=== PATIENT | female | born 1965 | race Caucasian/White ===

== ENCOUNTER 2017-01-01 12:41 | Emergency (ER) | payer BC, OTHER ==
--- NOTE | 2017-01-01 12:51 | UC ---
Skin Complaint HPI - HPI Summary HPI Summary: 51 y/o female PMHX Hypothyrodism presents to the urgent care c/o rash in her RT forearm that scabs overs and heals again a couple of weeks later with a lot of itchiness. It started as an insect bite a few months ago. She has been applying triple antibiotic, but it returns. Pt denies fever, SOB, chest pain, N /V/D. Pt has not other complains - History of Current Complaint Time Seen by Provider: 01/01/17 12:50 Stated Complaint: LEFT ARM SKIN COMPLAINT Hx Obtained From: Patient Hx Last Menstrual Period: 12/09/12 Onset/Duration: Gradual Onset, Lasting Weeks, Still Present Skin Exposure Onset/Duration: Worse Since: - couple of months ago Onset Severity: Moderate Current Severity: Mild Pain Intensity: 0 Pain Scale Used: 0-10 Numeric Location: Discrete - LF forarm Character: Pruritus Aggravating: Touch Alleviating: OTC Meds Associated Signs & Symptoms: Positive: Negative Related History: Insect Bite/Sting - Allergy/Home Medications Allergies/Adverse Reactions: Allergies Allergy/AdvReac Type Severity Reaction Status Date / Time No Known Allergies Allergy Verified 01/01/17 12:46 Review of Systems Constitutional: Negative Skin: Rash - Left forearm ENT: Negative Respiratory: Negative Cardiovascular: Negative Gastrointestinal: Negative Genitourinary: Negative Motor: Negative Neurovascular: Negative Musculoskeletal: Negative Neurological: Negative Psychological: Negative All Other Systems Reviewed And Are Negative: Yes PMH/Surg Hx/FS Hx/Imm Hx Previously Healthy: Yes Endocrine History: Hypothyroidism Other GI/ History: Fibroids - Surgical History Surgical History: Yes Surgery Procedure, Year, and Place: see above - Family History Known Family History: Positive: Hypertension, Diabetes - Social History Occupation: Employed Full-time Lives: With Family Substance Use Type: None Physical Exam Triage Information Reviewed: Yes Appearance: Well-Appearing, No Pain Distress, Well-Nourished, Obese Vital Signs Reviewed: Yes Eye Exam: Normal Eyes: Positive: Conjunctiva Clear - PERRLA, EOMI, fundi grossly normal ENT Exam: Normal ENT: Positive: Normal ENT inspection, Hearing grossly normal, Pharynx normal, TMs normal Dental Exam: Normal Neck exam: Normal Neck: Positive: Supple, Nontender, No Lymphadenopathy Respiratory Exam: Normal Respiratory: Positive: Chest non-tender, Lungs clear, Normal breath sounds Cardiovascular Exam: Normal Cardiovascular: Positive: RRR, No Murmur, Pulses Normal Abdominal Exam: Normal Abdomen Description: Positive: Nontender, No Organomegaly, Soft. Negative: CVA Tenderness (R), CVA Tenderness (L) Bowel Sounds: Positive: Present Musculoskeletal Exam: Normal Musculoskeletal: Positive: Strength Intact, ROM Intact, No Edema Neurological Exam: Normal Psychological Exam: Normal Skin: Positive: rashes - LF forearm anterior aspect w/ a discrete erythematous maculopapular eruption, non tender on palpation, no swelling or signs of infection observed, mild scoriation noted Course/Dx - Course Course Of Treatment: 51 y/o female PMHX Hypothyrodism presents to the urgent care c/o rash in her RT forearm that scabs overs and heals again a couple of weeks later with a lot of itchiness. It started as an insect bite a few months ago. She has been applying triple antibiotic, but it returns. Pt denies fever , SOB, chest pain, N/V/D. Hx obtained. Meds reviewed, Pt rash will be tx as dermatitis. Pt Rx Triamcinolone topical ointment to alleviate symptoms. If not improvement advised to f/u with her PCP for further treatment. - Differential Diagnoses - Skin Complaint Differential Diagnoses: Cellulitis, Contact Dermatitis, Eczema, Local Allergic Reaction, Tick Born Illness, Urticaria - Diagnoses Provider Diagnoses: 1- unspecified rash of the left arm Discharge - Discharge Plan Condition: Stable Disposition: HOME Prescriptions: Triamcinolone 0.1% OINT(NF) [Kenalog 0.1% OINT(NF)] 1 applic .SEE ORDER BID #1 tube Patient Education Materials: Acute Rash (ED) Referrals: Brenna Arita MD [Medical Doctor] - If Needed Additional Instructions: please apply topical cream as directed. If symptoms do not improve please f/u with your PCP for further evaluation and treatment.
[2017-01-01 12:52] VITALS: BP 133/79
== END 2017-01-01 13:43 | disposition home or self-care (01) ==
LOC: UCCORT 12:41
DX: R21 Rash and other nonspecific skin eruption (principal); E03.9 Hypothyroidism, unspecified; E66.9 Obesity, unspecified
CPT/HCPCS: 99212; G0463

== ENCOUNTER 2017-05-17 13:42 | Emergency (ER) | payer OTHER ==
--- NOTE | 2017-05-17 14:54 | UC ---
Throat Pain/Nasal Sami HPI - HPI Summary HPI Summary: 51 year old female presents with sinus - History of Current Complaint Chief Complaint: UCRespiratory Stated Complaint: MCCLELLAN/ST Time Seen by Provider: 05/17/17 14:54 Hx Obtained From: Patient Hx Last Menstrual Period: 12/09/12 Onset/Duration: Sudden Onset, Lasting Days Severity: Moderate Pain Scale Used: 0-10 Numeric - 5 - Allergies/Home Medications Allergies/Adverse Reactions: Allergies Allergy/AdvReac Type Severity Reaction Status Date / Time No Known Allergies Allergy Verified 05/17/17 14:57 PMH/Surg Hx/FS Hx/Imm Hx Previously Healthy: Yes - Surgical History Surgical History: Yes Surgery Procedure, Year, and Place: see above - Family History Known Family History: Positive: Hypertension, Diabetes - Social History Alcohol Use: None Substance Use Type: None Smoking Status (MU): Never Smoked Tobacco Review of Systems Constitutional: Negative Skin: Negative Eyes: Negative ENT: Sore Throat, Nasal Discharge, Sinus Congestion, Sinus Pain/Tenderness Respiratory: Cough Cardiovascular: Negative Gastrointestinal: Negative Genitourinary: Negative Motor: Negative Neurovascular: Negative Musculoskeletal: Negative Neurological: Negative Psychological: Negative All Other Systems Reviewed And Are Negative: Yes Physical Exam Triage Information Reviewed: Yes Vital Signs Reviewed: Yes Eye Exam: Normal ENT: Positive: Pharyngeal erythema, Nasal congestion, Nasal drainage, Sinus tenderness Dental Exam: Normal Neck exam: Normal Neck: Positive: 1 Respiratory: Positive: Rhonchi, Wheezing Cardiovascular Exam: Normal Abdominal Exam: Normal Musculoskeletal Exam: Normal Neurological Exam: Normal Psychological Exam: Normal Skin Exam: Normal Throat Pain/Nasal Course/Dx - Differential Dx/Diagnosis Provider Diagnoses: sinusitis. cough Discharge - Discharge Plan Condition: Stable Disposition: HOME Prescriptions: Amoxicillin/Clavulanate TAB* [Augmentin TAB 875*] 875 mg PO BID #20 tab Guaifenesin-Codeine [Cheratussin AC] 1 teasp PO Q8H PRN #120 ml MDD 15 ml PRN Reason: Cough LoraTADine TAB(NF) [Claritin 10 MG TAB(NF)] 10 mg PO DAILY #30 tab Magic M W2 Wyatt/Maal/Nyst/Lido* 5 ml SWISH SPIT QID PRN #120 ml PRN Reason: Sore Throat Patient Education Materials: Sinusitis (ED) Referrals: Mina Allen NP [Primary Care Provider] -
[2017-05-17 14:58] VITALS: BP 134/67
== END 2017-05-17 16:29 | disposition home or self-care (01) ==
LOC: UCCORT 13:42
DX: J32.9 Chronic sinusitis, unspecified (principal); R05 Cough
CPT/HCPCS: 87651; 99212; G0463

== ENCOUNTER 2017-11-15 17:30 | Emergency (ER) | payer BC, OTHER ==
[2017-11-15 17:55] VITALS: BP 132/68
--- NOTE | 2017-11-15 18:33 | UC ---
Ear Complaint HPI - HPI Summary HPI Summary: Pt presents with c/o pain and swelling to left outer upper ear X 1 days. Pt states she feels firm tender area inside upper inner pinna - History of Current Complaint Hx Obtained From: Patient Hx Last Menstrual Period: 11/12/17 ?: No Onset/Duration: Sudden Onset Severity Initially: Moderate Severity Currently: Moderate Pain Intensity: 8 Pain Scale Used: 0-10 Numeric Aggravating Factors: Other - tough Alleviating Factors: Nothing Associated Signs/Symptoms: Positive: Swelling @ - left upper innder pinna <Marietta Mosley NP - Last Filed: 11/15/17 18:27> <Ebenezer Martin - Last Filed: 11/15/17 20:41> - History of Current Complaint Chief Complaint: UCEar Stated Complaint: LEFT EAR PAIN Time Seen by Provider: 11/15/17 18:07 - Allergies/Home Medications Allergies/Adverse Reactions: Allergies Allergy/AdvReac Type Severity Reaction Status Date / Time No Known Allergies Allergy Verified 11/15/17 17:46 Home Medications: Home Medications DULoxetine DR CAP* [Cymbalta CAP*] 90 mg PO DAILY 11/15/17 [History Confirmed ] PMH/Surg Hx/FS Hx/Imm Hx Previously Healthy: Yes - Surgical History Surgical History: Yes Surgery Procedure, Year, and Place: - Family History Known Family History: Positive: Hypertension, Diabetes - Social History Occupation: Employed Full-time Lives: With Family Alcohol Use: None Substance Use Type: None Smoking Status (MU): Never Smoked Tobacco Have You Smoked in the Last Year: No - Immunization History Most Recent Influenza Vaccination: CURRENT 2016/2017 <Marietta Mosley NP - Last Filed: 11/15/17 18:27> Review of Systems Constitutional: Negative Skin: Negative Eyes: Negative ENT: Ear Ache Respiratory: Negative Cardiovascular: Negative Gastrointestinal: Negative Genitourinary: Negative Motor: Negative Neurovascular: Negative Musculoskeletal: Negative Neurological: Negative Psychological: Negative Is Patient Immunocompromised?: No All Other Systems Reviewed And Are Negative: Yes <Marietta Mosley NP Last Filed: 11/15/17 18:27> Physical Exam Triage Information Reviewed: Yes Appearance: Well-Appearing Vital Signs: Initial Vital Signs Temp 98.6 F 11/15/17 17:44 Pulse 82 11/15/17 17:44 Resp 15 11/15/17 17:44 BP 132/68 11/15/17 17:44 Pulse Ox 99 11/15/17 17:44 Vital Signs Reviewed: Yes Eye Exam: Normal ENT Exam: Other ENT: Positive: Other - outer inner pinna, firm mild erythematous area, with closed comedone forming Dental Exam: Normal Neck exam: Normal Neck: Positive: No Lymphadenopathy Respiratory Exam: Normal Respiratory: Positive: No respiratory distress Musculoskeletal Exam: Normal Neurological Exam: Normal Psychological Exam: Normal Skin Exam: Other - mild erythema, firm, tender area ~ 5 mm in diameter. left upper inner pinna <Marietta Mosley NP Last Filed: 11/15/17 18:27> Vital Signs: Initial Vital Signs Temp 98.6 F 11/15/17 17:44 Pulse 82 11/15/17 17:44 Resp 15 11/15/17 17:44 BP 132/68 11/15/17 17:44 Pulse Ox 99 11/15/17 17:44 <Ebenezer Martin - Last Filed: 11/15/17 20:41> Ear Complaint Course/Dx - Differential Dx/Diagnosis Differential Diagnosis/HQI/PQRI: Cellulitis Provider Diagnoses: cyst left ear <Marietta Mosley NP Last Filed: 11/15/17 18:27> Discharge - Sign-Out/Discharge Documenting (check all that apply): Discharge/Admit/Transfer - Billing Disposition and Condition Condition: STABLE Disposition: Home <Marietta Mosley NP Last Filed: 11/15/17 18:27> - Billing Disposition and Condition Condition: STABLE Disposition: Home <Ebenezer Martin Last Filed: 11/15/17 20:41> - Discharge Plan Condition: Stable Disposition: HOME Patient Education Materials: Earache (ED), Cyst (ED), Warm Compress or Soak (ED ) Referrals: Mina Allen NP [Primary Care Provider] - If Needed Additional Instructions: Per institutional requirements, I have reviewed the chart, however, I was not consulted specifically or made aware of this patient by the above midlevel provider. I did not personally evaluate, interact with , or disposition this patient.
== END 2017-11-15 18:19 | disposition home or self-care (01) ==
LOC: UCCORT 17:30
DX: Q18.1 Preauricular sinus and cyst (principal)
CPT/HCPCS: 99211; G0463

== ENCOUNTER 2017-11-28 15:14 | Emergency (ER) | payer BC ==
[2017-11-28 16:27] VITALS: BP 136/63
--- NOTE | 2017-11-28 16:28 | UC ---
Skin Complaint HPI - HPI Summary HPI Summary: "rash under my boobs", began about a week ago and now notes some little blistery /pimple type spots. - History of Current Complaint Time Seen by Provider: 11/28/17 16:20 Stated Complaint: RASH Hx Obtained From: Patient Hx Last Menstrual Period: 11/12/17 Onset/Duration: Gradual Onset Timing: Constant Alleviating Factor(s): Nothing Associated Signs & Symptoms: Positive: Rash. Negative: Fever - Allergy/Home Medications Allergies/Adverse Reactions: Allergies Allergy/AdvReac Type Severity Reaction Status Date / Time No Known Allergies Allergy Verified 11/15/17 17:46 Home Medications: Home Medications Statin 1 each PO DAILY 11/28/17 [History] Review of Systems Constitutional: Negative Skin: Rash - under breasts Eyes: Negative ENT: Negative Respiratory: Negative Cardiovascular: Negative Gastrointestinal: Negative Genitourinary: Negative Motor: Negative Neurovascular: Negative Musculoskeletal: Negative Neurological: Negative Psychological: Negative Is Patient Immunocompromised?: No All Other Systems Reviewed And Are Negative: Yes PMH/Surg Hx/FS Hx/Imm Hx Endocrine History: Thyroid Disease, Dyslipidemia Psychological History: Depression - Surgical History Surgical History: Yes Surgery Procedure, Year, and Place: - Family History Known Family History: Positive: Hypertension, Diabetes - Social History Occupation: Employed Full-time Lives: With Family Alcohol Use: None Substance Use Type: None Smoking Status (MU): Never Smoked Tobacco Have You Smoked in the Last Year: No - Immunization History Most Recent Influenza Vaccination: CURRENT 2016/2017 Vaccination Up to Date: Yes Physical Exam Triage Information Reviewed: Yes Appearance: Well-Appearing Vital Signs Reviewed: Yes Eyes: Positive: Conjunctiva Clear ENT: Positive: Normal ENT inspection Neck: Positive: Supple, Nontender, No Lymphadenopathy Respiratory: Positive: Lungs clear, Normal breath sounds Cardiovascular: Positive: RRR, No Murmur Abdomen Description: Positive: Nontender, No Organomegaly, Soft Bowel Sounds: Positive: Present Musculoskeletal: Positive: ROM Intact Neurological: Positive: Alert Psychological: Positive: Age Appropriate Behavior Skin Exam: Normal, Other - Mild erythema and decrease presents with few scattered small papules some representing pimples. No blisters appreciated. Course/Dx - Course Course Of Treatment: Rash under breasts with charateristics of fungal and bacterial infection thus will cover both - Diagnoses Provider Diagnoses: Acute rash under breasts Discharge - Sign-Out/Discharge Documenting (check all that apply): Patient Departure - Discharge Plan Condition: Stable Disposition: HOME Prescriptions: Nystatin TOP POWDER* 1 applic TOPICAL BID 14 Days #1 btl Sulfamethox/Trimethoprim DS* [Bactrim DS 800/160 TAB*] 1 tab PO BID #14 tab Patient Education Materials: MRSA (Methicillin-Resistant Staphylococcus Aureus ) (ED), Tinea Corporis (ED) Referrals: Mina Allen NP [Primary Care Provider] - 7 Days - Billing Disposition and Condition Condition: STABLE Disposition: Home
== END 2017-11-28 16:44 | disposition home or self-care (01) ==
LOC: UCCORT 15:14
DX: R21 Rash and other nonspecific skin eruption (principal); E07.9 Disorder of thyroid, unspecified; E78.5 Hyperlipidemia, unspecified; F32.9 Major depressive disorder, single episode, unspecified; Z82.49 Family history of ischemic heart disease and other diseases of the circulatory system; Z83.3 Family history of diabetes mellitus
CPT/HCPCS: 99212; G0463